=== PATIENT | female | born 1990 | race Two or more races ===

== ENCOUNTER 2024-02-08 13:53 | Emergency (ER) | payer OTHER ==
[~2024-02-08] VITALS: Ht 167.6 cm; Wt 68.0 kg
[2024-02-08 14:02] VITALS: BP 112/60; TEMP 98
[2024-02-08 15:23] VITALS: O2SAT 99
== END 2024-02-08 15:24 | disposition home or self-care (01) ==
LOC: ER 13:57
DX: S00.33XA Contusion of nose, initial encounter (principal); W50.0XXA Accidental hit or strike by another person, initial encounter; Y93.89 Activity, other specified; Y92.89 Other specified places as the place of occurrence of the external cause; Y99.8 Other external cause status
CPT/HCPCS: 70486-TC